=== PATIENT | male | born 2000 | race Hispanic/Latino ===

== ENCOUNTER 2021-05-18 16:36 | Emergency (ER) | payer OTHER ==
[2021-05-19 08:16] LABS: SARS-CoV-2 PCR by NAA Not Detected (NotDetected)
== END 2021-05-18 18:11 | disposition home or self-care (01) ==
LOC: ERS 16:36
DX: J06.9 Acute upper respiratory infection, unspecified (principal); Z20.822 Contact with and (suspected) exposure to COVID-19
CPT/HCPCS: 99283; U0003; U0005

== ENCOUNTER 2021-09-18 20:03 | Emergency (ER) | payer OTHER ==
[2021-09-18] MEDS ORDERED: Boostrix 0.5 ML (Tdap) VIAL ONE (20:44)
[2021-09-18] MEDS ORDERED: Ibuprofen 800 MG TAB ONE (20:55)
== END 2021-09-18 21:45 | disposition home or self-care (01) ==
LOC: ERS 20:03
DX: S91.311A Laceration without foreign body, right foot, initial encounter (principal); M79.5 Residual foreign body in soft tissue; R00.0 Tachycardia, unspecified; W25.XXXA Contact with sharp glass, initial encounter; Z23 Encounter for immunization
CPT/HCPCS: 90471; 90715; 93005

== ENCOUNTER 2022-02-11 18:36 | Emergency (ER) | payer OTHER, SELFPAY ==
[2022-02-12 11:55] LABS: SARS-CoV-2 PCR by NAA Not Detected (NotDetected)
== END 2022-02-11 20:50 | disposition home or self-care (01) ==
LOC: ERS 18:36
DX: J06.9 Acute upper respiratory infection, unspecified (principal); Z20.822 Contact with and (suspected) exposure to COVID-19
CPT/HCPCS: 87804; 99283; U0003; U0005

== ENCOUNTER 2024-04-30 18:44 | Emergency (ER) | payer SELFPAY ==
[2024-04-30] MEDS ORDERED: Ketorolac Tromethamine 30 MG (1 mL) VIAL ONE (19:16)
== END 2024-04-30 19:25 | disposition home or self-care (01) ==
LOC: ERS 18:44
DX: M54.50 Low back pain, unspecified (principal)
CPT/HCPCS: 96372; 99283; J1885

== ENCOUNTER 2024-05-03 15:35 | Emergency (ER) | payer SELFPAY ==
[2024-05-03 16:23] LABS: Bacteria/HPF None Seen HPF (None Seen); Bilirubin Negative (Negative); Blood, Urine Negative (Negative); CAUTI Indications for Culture Pelvic or flank pain; Clarity Clear (Clear); Glucose, Urine (Dipstick) Normal (Negative); Ketone, Urine Negative (Negative); Leukocyte Negative Leu/uL (Negative); Nitrite Negative (Negative); Protein, Urine (Dipstick) 10 mg/dL (Neg-Trace); RBC/HPF 0-3 HPF (0-3); Specific Gravity, Urine 1.026 (1.002-1.036); Squamous Epithelial None Seen HPF (0-3); Urobilinogen Normal mg/dL (Less than 2); WBC/HPF 0-3 HPF (0-3)
[2024-05-03 16:25] LABS: Urine Culture Reflex No No
== END 2024-05-03 16:46 | disposition home or self-care (01) ==
LOC: ERS 15:35
DX: S39.012A Strain of muscle, fascia and tendon of lower back, initial encounter (principal); X50.0XXA Overexertion from strenuous movement or load, initial encounter; Y93.F2 Activity, caregiving, lifting
CPT/HCPCS: 81001; 99283